=== PATIENT | female | born 1980 | race African-American/Black ===

== ENCOUNTER 2016-08-17 19:38 | Emergency (ER) | payer OTHER ==
[~2016-08-17] VITALS: Ht 165.1 cm; Wt 81.7 kg
[2016-08-17] MEDS ORDERED: ZPAK PO (20:59)
[2016-08-17] MEDS ORDERED: PREDNISONE 20 M20 MG PO (20:59)
[2016-08-17] MEDS ORDERED: IBUPROFEN 600600 M1 PO (20:59)
[2016-08-17 21:53] VITALS: BP 144/94
== END 2016-08-17 21:55 | disposition home or self-care (01) ==
LOC: ER 19:38
DX: J06.9 Acute upper respiratory infection, unspecified (principal); J02.9 Acute pharyngitis, unspecified; H66.92 Otitis media, unspecified, left ear; K58.9 Irritable bowel syndrome, unspecified; Z98.890 Other specified postprocedural states; Z88.0 Allergy status to penicillin; Z88.6 Allergy status to analgesic agent